=== PATIENT | female | born 1965 | race Caucasian/White ===

== ENCOUNTER 2017-08-30 09:00 | Emergency (ER) | payer BC ==
[2017-08-30] MEDS ORDERED: HYDROmorphone 0.5 MG/0.5 ML Syringe IVPUSH ONE ×3 (09:35→12:49)
[2017-08-30] MEDS ORDERED: Ondansetron 4 MG/2 ML SDV IVPUSH ONE ×2 (09:35→10:28)
--- NOTE | 2017-08-30 09:38 | EDM.PDOC ---
ED HPI GENERAL MEDICAL PROBLEM - General Chief Complaint: Abdominal Pain Stated Complaint: SHARP PAIN IN STOMACH AREA Time Seen by Provider: 08/30/17 09:36 Source of Information: Reports: Patient History Limitations: Reports: No Limitations - History of Present Illness INITIAL COMMENTS - FREE TEXT/NARRATIVE: pt has severe pain in the rt upper abdoman. She is rating it a 8. She has felt nauseated but she has not vomited. 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 Onset: Gradual, Other ( She has had pain for about 5 days. ) Duration: Day(s): Location: Reports: Abdomen Associated Symptoms: Reports: Nausea/Vomiting Right Upper Abdomen Pain Score (Numeric/FACES): 8 - Related Data Allergies Allergy/AdvReac Type Severity Reaction Status Date / Time No Known Allergies Allergy Verified 08/30/17 09:21 Home Meds: Home Meds Estradiol 1 each TRDERM WEEKLY 06/19/14 [History] Imatinib [Gleevec] 200 mg PO BID 06/19/14 [History] Multivits-Min/Iron/FA/Lutein [Centrum Silver Women Tablet] 1 tab PO DAILY [History] Felt-3 Fatty Acids [Fish Oil] 300 mg PO DAILY 06/19/14 [History] Polyethylene Glycol 3350 [MiraLAX] 17 gm PO DAILY 06/19/14 [History] Past Medical History Gastrointestinal History: Reports: Other (See Below) Other Gastrointestinal History: gastric tumor removed. liver cancer [employer] [facility] History: Reports: Immunologic History: Reports: Immunosuppression Oncologic (Cancer) History: Reports: Other (See Below) Other Oncologic History: gist tumor. liver cancer Dermatologic History: Reports: Eczema - Past Surgical History HEENT Surgical History: Reports: Tonsillectomy GI Surgical History: Reports: EGD, Other (See Below) Female Surgical History: Reports: Hysterectomy, Salpingo-Oophorectomy Oncologic Surgical History: Reports: Other (See Below) Other Oncologic Surgeries/Procedures: tumor removed Social & Family History - Tobacco Use Smoking Status *Q: Never Smoker - Caffeine Use Caffeine Use: Reports: Coffee - Recreational Drug Use Recreational Drug Use: No ED ROS GENERAL - Review of Systems Review Of Systems: See Below Constitutional: Reports: Other (pt is having severe pain for the past 5 days but it is worse today. ) HEENT: Reports: No Symptoms Respiratory: Reports: No Symptoms Cardiovascular: Reports: No Symptoms Endocrine: Reports: No Symptoms GI/Abdominal: Reports: Abdominal Pain, Decreased Appetite, Nausea : Reports: No Symptoms Musculoskeletal: Reports: No Symptoms Skin: Reports: No Symptoms Neurological: Reports: No Symptoms ED EXAM, GI/ABD - Physical Exam Exam: See Below Text/Narrative:: pt arrived with very severe rt upper abdomanal pain. 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 She is on oral chemo at this time. She is nauseated but she has not vomited. She is rating her pain a 9. This pain stated 5 days ago. Exam Limited By: No Limitations General Appearance: Alert, Anxious, Severe Distress Ears: Normal TMs Nose: Normal Inspection Throat/Mouth: Normal Inspection Head: Atraumatic Neck: Normal Inspection Respiratory/Chest: No Respiratory Distress Cardiovascular: Regular Rate, Rhythm GI/Abdominal Exam: Soft, Tender, Other (pt has tenderness in the rt upper abdoman. There is no true guarding present. ) (Female) Exam: Deferred Rectal (Female) Exam: Deferred Back Exam: Normal Inspection Extremities: Normal Inspection Neurological: Alert, Oriented, Normal Cognition Psychiatric: Normal Affect Course - Vital Signs Last Recorded V/S: Last Vital Signs Temp 35.8 C 08/30/17 12:29 Pulse 62 08/30/17 13:30 Resp 14 08/30/17 13:30 BP 110/61 08/30/17 13:30 Pulse Ox 94 L 08/30/17 13:30 - Orders/Labs/Meds Labs: Laboratory Tests 08/30/17 08/30/17 08/30/17 Range/Units 09:47 09:47 09:47 WBC 5.5 (4.5-11.0) K/uL RBC 3.60 (3.30-5.50) M/uL Hgb 12.3 (12.0-15.0) g/dL Hct 36.4 (36.0-48.0) % MCV 101 H (80-98) fL MCH 34 H (27-31) pg MCHC 34 (32-36) % Plt Count 202 (150-400) K/uL Neut % (Auto) 50 (36-66) % Lymph % (Auto) 38 (24-44) % Sully % (Auto) 10 H (2-6) % Eos % (Auto) 2 (2-4) % Baso % (Auto) 0 (0-1) % Sodium 138 L (140-148) mmol/L Potassium 3.4 L (3.6-5.2) mmol/L Chloride 104 (100-108) mmol/L Carbon Dioxide 29 (21-32) mmol/L Anion Gap 8.4 (5.0-14.0) mmol/L BUN 16 (7-18) mg/dL Creatinine 0.9 (0.6-1.0) mg/dL Est Cr Clr Drug Dosing 63.86 mL/min Estimated GFR (MDRD) > 60 (>60) Glucose 97 (74-106) mg/dL Calcium 8.3 L (8.5-10.1) mg/dL Total Bilirubin 0.4 (0.2-1.0) mg/dL AST 15 (15-37) U/L ALT 43 (12-78) U/L Alkaline Phosphatase 55 (46-116) U/L C-Reactive Protein 0.07 (0.0-0.3) mg/dL Total Protein 6.6 (6.4-8.2) g/dL Albumin 3.5 (3.4-5.0) g/dL Globulin 3.1 (2.3-3.5) g/dL Albumin/Globulin Ratio 1.1 L (1.2-2.2) Amylase 36 (25-115) U/L Lipase 96 (73-393) U/L Urine Color Urine Appearance Urine pH (4.5-8.0) Ur Specific [place] (1.008-1.030) Urine Protein (NEGATIVE) mg/dL Urine Glucose (UA) (NEGATIVE) mg/dL Urine Ketones (NEGATIVE) mg/dL Urine Occult Blood (NEGATIVE) Urine Nitrite (NEGATIVE) Urine Bilirubin (NEGATIVE) Urine Urobilinogen (NORMAL) mg/dL Ur Leukocyte Esterase (NEGATIVE) Urine RBC (0-5) Urine WBC (0-5) Ur Epithelial Cells Amorphous Sediment Urine Bacteria Urine Mucus 08/30/17 Range/Units 10:00 WBC (4.5-11.0) K/uL RBC (3.30-5.50) M/uL Hgb (12.0-15.0) g/dL Hct (36.0-48.0) % MCV (80-98) fL MCH (27-31) pg MCHC (32-36) % Plt Count (150-400) K/uL Neut % (Auto) (36-66) % Lymph % (Auto) (24-44) % Sully % (Auto) (2-6) % Eos % (Auto) (2-4) % Baso % (Auto) (0-1) % Sodium (140-148) mmol/L Potassium (3.6-5.2) mmol/L Chloride (100-108) mmol/L Carbon Dioxide (21-32) mmol/L Anion Gap (5.0-14.0) mmol/L BUN (7-18) mg/dL Creatinine (0.6-1.0) mg/dL Est Cr Clr Drug Dosing mL/min Estimated GFR (MDRD) (>60) Glucose (74-106) mg/dL Calcium (8.5-10.1) mg/dL Total Bilirubin (0.2-1.0) mg/dL AST (15-37) U/L ALT (12-78) U/L Alkaline Phosphatase (46-116) U/L C-Reactive Protein (0.0-0.3) mg/dL Total Protein (6.4-8.2) g/dL Albumin (3.4-5.0) g/dL Globulin (2.3-3.5) g/dL Albumin/Globulin Ratio (1.2-2.2) Amylase (25-115) U/L Lipase (73-393) U/L Urine Color Yellow Urine Appearance Slightly cloudy Urine pH 6.0 (4.5-8.0) Ur Specific [place] 1.015 (1.008-1.030) Urine Protein Negative (NEGATIVE) mg/dL Urine Glucose (UA) Normal (NEGATIVE) mg/dL Urine Ketones Negative (NEGATIVE) mg/dL Urine Occult Blood Negative (NEGATIVE) Urine Nitrite Negative (NEGATIVE) Urine Bilirubin Negative (NEGATIVE) Urine Urobilinogen Normal (NORMAL) mg/dL Ur Leukocyte Esterase Negative (NEGATIVE) Urine RBC Not seen (0-5) Urine WBC 0-5 (0-5) Ur Epithelial Cells Rare Amorphous Sediment Rare Urine Bacteria Moderate Urine Mucus Not seen Meds: Medications Discontinued Medications Generic Name Dose Route Start Last Admin Trade Name Freq PRN Reason Stop Dose Admin Hydromorphone HCl 0.5 mg 08/30/17 09:35 08/30/17 09:40 Dilaudid IVPUSH 08/30/17 09:36 0.5 mg ONETIME ONE Administration Hydromorphone HCl 0.5 mg 08/30/17 10:07 08/30/17 10:16 Dilaudid IVPUSH 08/30/17 10:08 0.5 mg ONETIME ONE Administration Hydromorphone HCl 0.5 mg 08/30/17 12:49 08/30/17 13:26 Dilaudid IVPUSH 08/30/17 12:50 0.5 mg ONETIME ONE Administration Sodium Chloride 1,000 mls @ 999 mls/hr 08/30/17 09:45 08/30/17 09:39 Normal Saline IV 999 mls/hr ASDIRECTED DAVID Administration Sodium Chloride 80 mls @ 3.5 mls/sec 08/30/17 10:25 08/30/17 10:56 Normal Saline IV 08/30/17 10:26 3.3 mls/sec ONETIME ONE Administration Sodium Chloride 1,000 mls @ 999 mls/hr 08/30/17 12:15 08/30/17 12:39 Normal Saline IV 999 mls/hr ASDIRECTED DAVID Administration Sodium Chloride 1,000 mls @ 150 mls/hr 08/30/17 13:00 Normal Saline IV ASDIRECTED DAVID Iopamidol 100 ml 08/30/17 10:30 08/30/17 10:56 Isovue-300 (61%) IV 100 ml . DIRECTED DAVID Administration Lorazepam 0.5 mg 08/30/17 10:27 08/30/17 10:34 Ativan IVPUSH 08/30/17 10:28 0.5 mg ONETIME ONE Administration Lorazepam 0.5 mg 08/30/17 12:50 08/30/17 13:25 Ativan IVPUSH 08/30/17 12:51 0.5 mg ONETIME ONE Administration Ondansetron HCl 4 mg 08/30/17 09:35 08/30/17 09:39 Zofran IVPUSH 08/30/17 09:36 4 mg ONETIME ONE Administration Ondansetron HCl 4 mg 08/30/17 10:28 08/30/17 13:40 Zofran IVPUSH 08/30/17 10:29 Not Given ONETIME ONE Sodium Chloride 10 ml 08/30/17 10:25 08/30/17 10:55 Saline Flush FLUSH 08/30/17 10:26 10 ml ONETIME ONE Administration - Re-Assessments/Exams Free Text/Narrative Re-Assessment/Exam: 08/30/17 11:52 lab work was not real remarkable, Her cat scan of the abdoman did not reveal acute findings, There was evidence of the liver lesions . None of them looked like she had bled into them. Departure - Departure Time of Disposition: 13:45 Disposition: DC/Tfer to Acute Hospital 02 Condition: Fair Clinical Impression: Liver metastasis, Gastrointestinal stromal tumor (GIST), Sudden onset of severe abdominal pain - Discharge Information Referrals: Naomi Ly PA [Primary Care Provider] - Forms: ED Department Discharge Care Plan Goals: transfer to [facility].
[2017-08-30] MEDS ORDERED: Sodium Chloride 0.9% 1,000 ML IV SCH ×3 (09:45→13:00)
[2017-08-30] MEDS ORDERED: Sodium Chloride 0.9% 10 ML Syringe FLUSH ONE (10:25)
[2017-08-30] MEDS ORDERED: Sodium Chloride 0.9% 80 ML IV ONE (10:25)
[2017-08-30] MEDS ORDERED: LORazepam 2 MG/ML SDV IVPUSH ONE ×2 (10:27→12:50)
[2017-08-30] MEDS ORDERED: Iopamidol 612 MG/ML 100 ML Bottle IV SCH (10:30)
--- NOTE | 2017-08-30 11:44 | CT ---
Abdomen Pelvis w Cont CLINICAL HISTORY: Upper abdominal pain, history of GIST tumor COMPARISON: 19 June 2014. TECHNIQUE: Axial tomographic images are obtained from the dome of the diaphragm to the pubic symphysi s without IV contrast enhancement. No oral contrast was used. Auto dosage reduction and iterative rec onstruction techniques employed. FINDINGS: The lung bases are clear. The liver contains scattered the rounded low-attenuation lesions. The in the dome is a 7 mm nodule. In the anterior segment of the right lobe there is an 8 mm nodule. There is a 13 mm nodule in the lower right lobe There are scattered smaller nodules in both lobes. T here is some minimal intrahepatic ductal prominence similar to prior study. Pancreatic duct is mildly prominent but similar to prior study. The no pancreatic mass or inflammatory change is identified. T he gallbladder has a normal appearance. Spleen has normal size and shape.The adrenal glands appear no rmal bilaterally. The kidneys show no mass or hydronephrosis. There is a 4 mm nonobstructing calculus in the midpole the left kidney unchanged since prior study. The aorta has a normal contour. There a re a few scattered small lymph nodes in the retroperitoneum similar to prior study. There are some mi ldly prominent mesenteric nodes which are new since prior exam. There has been previous mid abdominal surgery.. IMPRESSION: Multiple new rounded lesions throughout the liver suspect for metastatic disease. Scattered lymph nodes throughout the mesentery have increased in size and number since prior study If clinically relevant, PET scan is a consideration
[2017-08-30 14:06] VITALS: BP 110/61
== END 2017-08-30 13:47 ==
LOC: JP.ED 09:00
DX: R10.11 Right upper quadrant pain (principal); C78.7 Secondary malignant neoplasm of liver and intrahepatic bile duct; C49.A0 Gastrointestinal stromal tumor, unspecified site
CPT/HCPCS: 36415; 74177; 80053; 81001; 82150; 83690; 85025; 86140; 96361; 96374; 96375; 96376; 99285; J1170; J2060; J2405; J7030; J7050; Q9967

== ENCOUNTER 2022-12-08 10:07 | Emergency (ER) | payer BC, OTHER ==
[2022-12-08] MEDS ORDERED: Prochlorperazine 10 MG/2 ML SDV IVPUSH ONE (11:37)
[2022-12-08] MEDS ORDERED: Acetaminophen 325 MG Tab PO ONE (11:38)
[2022-12-08] MEDS ORDERED: Iopamidol 612 MG/ML 100 ML Bottle IV ONE (11:38)
[2022-12-08] MEDS ORDERED: Sodium Chloride 0.9% 10 ML Syringe FLUSH ONE (11:38)
[2022-12-08] MEDS ORDERED: Sodium Chloride 0.9% 50 ML IV ONE (11:38)
[2022-12-08] MEDS ORDERED: Sodium Chloride 0.9% 1,000 ML IV SCH ×2 (11:45→14:45)
[2022-12-08 11:51] LABS: CARBOXYHEMOGLOBIN 2.4 % (0.0-1.6); METHEMOGLOBIN 0.9 %; O2 SATURATION VENOUS 85.1; OXYHEMOGLOBIN 82.3 %; PO2 VENOUS 55.3 mm/Hg; TOTAL HEMOGLOBIN 15.4 g/dL (12.0-16.0)
[2022-12-08 11:54] LABS: BICARBONATE,VENOUS 24.4 mmol/L; PH,VENOUS 7.414 (7.350-7.450)
[2022-12-08 11:55] LABS: BASE EXCESS VENOUS 0.5 mm/L; BASOPHILS PERCENT AUTO 0.1 % (0.1-1.3); EOSINOPHILS PERCENT AUTO 0.3 % (0.0-5.4); HEMATOCRIT 44.3 % (34.3-46.0); HEMOGLOBIN 15.6 g/dL (11.2-15.5); IMMATURE GRAN PERCENT AUTO 0.3 % (0.0-0.7); LYMPHOCYTES ABSOLUTE AUTO 1.07 K/uL (0.8-3.3); LYMPHOCYTES PERCENT AUTO 15.7 % (11.4-47.7); MEAN CORPUSCULAR HGB CONC 35.2 g/dL (31.6-35.5); MEAN CORPUSCULAR VOLUME 107.8 fL (81.4-99.0); MONOCYTES ABSOLUTE AUTO 0.57 K/uL (0.20-0.90); MONOCYTES PERCENT AUTO 8.4 % (3.3-12.6); NEUTROPHILS ABSOLUTE AUTO 5.12 K/uL (1.0-7.6); NEUTROPHILS PERCENT AUTO 75.2 % (40.0-78.1); PLATELET COUNT,PLT 299 K/uL (130-375); RED BLOOD CELL COUNT 4.11 M/uL (3.77-5.24); WHITE BLOOD CELL COUNT,WBC 6.8 K/uL (3.2-11.0)
[2022-12-08 12:14] LABS: ALANINE AMINOTRANSFERASE,ALT 48 U/L (12-78); ALBUMIN 4.5 g/dL (3.4-5.0); ALKALINE PHOSPHATASE 89 U/L (46-116); ASPARTATE AMNIOTRANSFERASE,AST 22 U/L (15-37); BILIRUBIN TOTAL 0.4 mg/dL (0.2-1.0); BLOOD UREA NITROGEN,BUN 31 mg/dL (7-18); CALCIUM 9.8 mg/dL (8.5-10.1); CARBON DIOXIDE,CO2 29 mmol/L (21-32); CHLORIDE,CL 90 mmol/L (100-108); ESTIMATED GFR 11 mL/min (>60); GLUCOSE RANDOM 145 mg/dL (74-106); MAGNESIUM 2.3 mg/dL (1.8-2.4); POTASSIUM,K 3.9 mmol/L (3.6-5.2); PROTEIN TOTAL,TP 9.2 g/dL (6.4-8.2); SODIUM,NA 134 mmol/L (140-148)
[2022-12-08 12:18] LABS: BASOPHILS ABSOLUTE AUTO 0.01 K/uL (0.00-0.10); EOSINOPHILS ABSOLUTE AUTO 0.02 K/uL (0.00-0.40); IMMATURE GRAN ABSOLUTE AUTO 0.02 K/uL (0.00-0.23)
[2022-12-08 12:20] LABS: ANION GAP 18.9 mmol/L (5.0-14.0)
[2022-12-08 12:22] LABS: CREATININE 4.6 mg/dL (0.6-1.0)
[2022-12-08 16:27] VITALS: BP 128/62; PULSE 70
[2022-12-08 16:50] LABS: APPEARANCE,URINE SLIGHTLY CLOUDY (CLEAR); BILIRUBIN,URINE SMALL (NEGATIVE); COLOR,URINE YELLOW (YELLOW); GLUCOSE,URINE NEGATIVE (NEGATIVE); KETONES,URINE NEGATIVE (NEGATIVE); LEUKOCYTE ESTERASE,URINE NEGATIVE (NEGATIVE); NITRITE,URINE NEGATIVE (NEGATIVE); OCCULT BLOOD,URINE TRACE-INTACT (NEGATIVE); PROTEIN,URINE 100 mg/dL (NEGATIVE); UROBILINOGEN,URINE 0.2 EU/dL (0.2-1.0)
[2022-12-08 16:57] LABS: AMORPHOUS SEDIMENT,URINE NOT SEEN; BACTERIA,URINE MANY; EPITHELIAL CELLS,URINE FEW; MUCUS,URINE NOT SEEN
== END 2022-12-08 16:54 | disposition critical access hospital (66) ==
LOC: JP.ED 10:07
DX: E86.0 Dehydration (principal); N28.9 Disorder of kidney and ureter, unspecified; K56.609 Unspecified intestinal obstruction, unspecified as to partial versus complete obstruction; Z79.899 Other long term (current) drug therapy; Z88.5 Allergy status to narcotic agent; Z88.8 Allergy status to other drugs, medicaments and biological substances
CPT/HCPCS: 36415; 74177; 74177-26; 80053; 81001; 82803; 83605; 83735; 85025; 96360; 96361; 96374; 99285; 99285-25; A9270-GY; J0780; J3490; J7030; Q9967